=== PATIENT | female | born 1950 | race Caucasian/White ===

== ENCOUNTER → 2017-08-01 | Outpatient (CLI) | payer OTHER ==
[~2017-08-01] MED LIST: LEVOTHYROXINE100 MC1 PO; TOPROL XL100 MG PO
--- NOTE | ~2017-08-01 | EKG ---
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
== END | disposition home or self-care (01) ==
LOC: LITH 06:13
DX: N20.1 Calculus of ureter (principal); I10 Essential (primary) hypertension; E78.00 Pure hypercholesterolemia, unspecified; E07.9 Disorder of thyroid, unspecified; K21.9 Gastro-esophageal reflux disease without esophagitis; Z98.890 Other specified postprocedural states; Z79.899 Other long term (current) drug therapy